=== PATIENT | female | born 1980 | race African-American/Black ===

== ENCOUNTER → 2020-09-24 | Outpatient (CLI) | payer MEDICAID ==
[~2020-09-24] MED LIST: ASPIRIN 32325 MG/TAB PO; FLEXERIL 1010 MG/TAB PO; NORCO 325 MG-51 TAB PO; PRILOSEC 20MG20 MG PO; VENTOLIN0.09 MG IH; [UNRECOGNIZED DRUG - REMARK]
== END ==
LOC: MHCPAIN 14:29
DX: M47.816 Spondylosis without myelopathy or radiculopathy, lumbar region (principal); M54.5 Low back pain; M53.3 Sacrococcygeal disorders, not elsewhere classified
CPT/HCPCS: G0463

== ENCOUNTER → 2021-04-28 | Outpatient (CLI) | payer BC | LOC: MHCPAIN 10:53 | DX: M47.816 Spondylosis without myelopathy or radiculopathy, lumbar region (principal); M53.3 Sacrococcygeal disorders, not elsewhere classified; M54.16 Radiculopathy, lumbar region | CPT/HCPCS: G0463 ==

== ENCOUNTER → 2021-04-30 | Outpatient (CLI) | payer BC, MEDICAID ==
[2021-04-30 16:01] LABS: BASO # 0.1 K/mm3 (0.0-0.2); BASO % 0.5 % (0.0-2.0); EOS # 0.1 K/mm3 (0.0-0.7); EOS % 0.6 % (0.0-4.0); GRAN % 68.2 % (42.2-75.2); HEMATOCRIT 39.2 % (37.0-47.0); LYMPH # 2.6 K/mm3 (1.2-3.4); LYMPH % 24.8 % (20.0-51.0); MEAN CELL VOLUME 85 fl (80.0-100.0); MEAN CORPUSCULAR HEMOGLOBIN 28 pg (27-31); MEAN CORPUSCULAR HGB CONC 33 g/dl (33.0-37.0); MEAN PLATELET VOLUME 9.3 fl (7.4-10.4); MONO # 0.6 K/mm3 (0.1-0.6); MONO % 5.6 % (1.7-9.3); PLATELET COUNT 277 K/mm3 (130-400); REDCELL DISTRIBUTION WIDTH-CV 12.3 % (11.5-14.5)
[2021-04-30 16:17] LABS: ALBUMIN 4.3 gm/dL (3.5-5.0); BILIRUBIN,TOTAL 0.5 mg/dL (0.2-1.2); C-REACTIVE PROTEIN 0.17 mg/dL (0.00-0.50); CALCIUM 9.2 mg/dL (8.4-10.2); CREATININE, serum 0.76 mg/dL (0.57-1.11); POTASSIUM 3.9 mmol/L (3.5-4.5); TOTAL PROTEIN 7.2 gm/dL (6.2-8.1)
== END ==
LOC: COL.LAB 15:38
PROVIDERS: Registered Nurse
DX: M79.89 Other specified soft tissue disorders (principal); Z79.899 Other long term (current) drug therapy

== ENCOUNTER → 2021-05-01 | Outpatient (CLI) | payer BC, MEDICAID | LOC: COL.VAS 10:09 | DX: M79.661 Pain in right lower leg (principal); M79.89 Other specified soft tissue disorders; R79.1 Abnormal coagulation profile ==

== ENCOUNTER → 2021-05-14 | Outpatient (CLI) | payer BC, MEDICAID | LOC: MHCPAIN 08:23 | DX: M47.817 Spondylosis without myelopathy or radiculopathy, lumbosacral region (principal); M53.3 Sacrococcygeal disorders, not elsewhere classified; M54.16 Radiculopathy, lumbar region | CPT/HCPCS: J1100; Q9967 ==

== ENCOUNTER 2021-05-18 13:15 | Outpatient (RCR) | payer BC, MEDICAID | END 2021-05-25 | disposition home or self-care (01) | LOC: PT.GENESIS | DX: M47.896 Other spondylosis, lumbar region (principal) ==

== ENCOUNTER → 2021-05-26 | Outpatient (CLI) | payer BC, MEDICAID | LOC: MHCPAIN 08:36 | DX: M53.3 Sacrococcygeal disorders, not elsewhere classified (principal); M47.816 Spondylosis without myelopathy or radiculopathy, lumbar region; M54.16 Radiculopathy, lumbar region | CPT/HCPCS: G0463 ==

== ENCOUNTER 2021-06-24 08:45 | Outpatient (RCR) | payer BC, MEDICAID | END 2021-06-25 | disposition still patient (30) | LOC: PT.GENESIS | DX: M47.896 Other spondylosis, lumbar region (principal) ==

== ENCOUNTER → 2021-07-09 | Outpatient (CLI) | payer BC, MEDICAID | LOC: MHCPAIN 06-11 11:09 | DX: M47.817 Spondylosis without myelopathy or radiculopathy, lumbosacral region (principal); M54.50 Low back pain, unspecified; M53.3 Sacrococcygeal disorders, not elsewhere classified | CPT/HCPCS: G0463; J1100; Q9967 ==

== ENCOUNTER 2021-07-23 11:30 | Outpatient (RCR) | payer BC, MEDICAID | END 2021-07-25 | disposition home or self-care (01) | LOC: PT.GENESIS | DX: M47.896 Other spondylosis, lumbar region (principal) ==

== ENCOUNTER 2021-08-12 13:45 | Outpatient (RCR) | payer BC, MEDICAID | END 2021-08-25 | disposition home or self-care (01) | LOC: PT.GENESIS | DX: M47.26 Other spondylosis with radiculopathy, lumbar region (principal) ==

== ENCOUNTER → 2021-08-26 | Outpatient (CLI) | payer BC, MEDICAID | LOC: COL.LAB 15:12 | DX: J30.1 Allergic rhinitis due to pollen (principal) ==

== ENCOUNTER 2021-09-21 09:00 | Outpatient (RCR) | payer BC, MEDICAID | END 2021-09-24 | disposition home or self-care (01) | LOC: PT.GENESIS | DX: M47.26 Other spondylosis with radiculopathy, lumbar region (principal) ==

== ENCOUNTER 2021-09-29 09:23 | Outpatient (RCR) | payer BC, MEDICAID | END 2021-10-25 | disposition home or self-care (01) | LOC: PT.GENESIS | DX: M47.26 Other spondylosis with radiculopathy, lumbar region (principal) ==

== ENCOUNTER 2022-07-19 08:15 | Outpatient (RCR) | payer MEDICAID | END 2022-07-25 | disposition home or self-care (01) | LOC: PT.GENESIS | DX: M47.26 Other spondylosis with radiculopathy, lumbar region (principal) ==

== ENCOUNTER 2022-11-03 15:45 | Outpatient (RCR) | payer MEDICAID | END 2022-11-25 | disposition home or self-care (01) | LOC: WSPT | DX: M54.50 Low back pain, unspecified (principal); G89.29 Other chronic pain ==